=== PATIENT | male | born 1950 | race Native Hawaiian/Other Pacific Islander ===

== ENCOUNTER 2017-07-20 07:48 | Outpatient (CLI) | payer BC, OTHER ==
[~2017-07-20 07:48] MED LIST: ACET7.5T70 PO; ADIPEX-P37.5 M1 OR; CELEXA20 MG OR; CLARITIN10 MG OR; EZET10TA13 OR; FA-8800 MCG OR; FISH OIL1200 M1 OR; FURO40TA93 PO; GLUCOPHAGE1000 MG PO; LEVO0.08 PO; PLAVIX75 MG OR; PRAV40TA PO; PRILOSEC20 MG OR; RANO1000T PO; SINGULAIR10 MG OR; TRAZODONE150 MG PO
[2017-07-20] MEDS ORDERED: LIPITOR80 MG PO (11:22)
== END 2017-07-20 07:53 | disposition short-term general hospital (02) ==
LOC: AMB 07:48
DX: R53.1 Weakness (principal); R11.0 Nausea
CPT/HCPCS: A0425; A0427

== ENCOUNTER 2017-07-20 07:53 | Observation (INO) | payer BC, OTHER ==
[~2017-07-20] VITALS: Ht 172.7 cm; Wt 75.8 kg
[2017-07-20 07:55] VITALS: BP 146/74; TEMP 97.9
[2017-07-20 08:22] LABS: PLATELET COUNT 137 K/uL (142-355)
[2017-07-20 08:25] LABS: POTASSIUM 5.2 mmol/L (3.6-5.2)
[2017-07-20 09:37] LABS: PARTIAL THROMBOPLASTIN TIME 21.9 SECONDS (24.5-33.6)
[2017-07-20] MEDS ORDERED: LIPITOR80 MG PO (11:22)
[2017-07-20 14:53] VITALS: BP 144/77; TEMP 98.5; Ht 172.7 cm; Wt 75.8 kg
[2017-07-20 16:00] VITALS: BP 123/66; TEMP 98.8
[2017-07-20 20:00] VITALS: BP 140/76; TEMP 98.8
[2017-07-21] VITALS: BP 121/58; TEMP 98.3
[2017-07-21 04:00] VITALS: BP 108/60; TEMP 98.3
[2017-07-21 06:08] LABS: PLATELET COUNT 159 K/uL (142-355)
[2017-07-21 06:18] LABS: POTASSIUM 4.7 mmol/L (3.6-5.2); SODIUM 136 mmol/L (136-145)
[2017-07-21 08:00] VITALS: BP 114/56; TEMP 99.1
[2017-07-21 12:00] VITALS: BP 131/60; TEMP 98.6
== END 2017-07-21 17:10 | disposition home or self-care (01) ==
LOC: ED 07:53 → MED/SURG 10:45
PROVIDERS: ADMIT Emergency Medicine
DX: R55 Syncope and collapse (principal); E16.1 Other hypoglycemia; D53.9 Nutritional anemia, unspecified; R94.4 Abnormal results of kidney function studies; J44.9 Chronic obstructive pulmonary disease, unspecified; E11.9 Type 2 diabetes mellitus without complications; R07.89 Other chest pain; R20.0 Anesthesia of skin; R20.2 Paresthesia of skin
CPT/HCPCS: 36415; 80053; 82550; 82948; 83036; 83735; 84443; 84484; 85027; 85610; 85730; 93005; 93306; 96365; 96366; 99220; 99283; G0378

== ENCOUNTER 2021-07-14 10:13 | Outpatient (CLI) | payer OTHER, BC ==
[~2021-07-14 10:13] MED LIST changes: +LIPITOR80 MG PO
[2021-07-14 10:44] LABS: PLATELET COUNT 178 K/uL (142-355)
[2021-07-14 11:01] LABS: POTASSIUM 4.6 mmol/L (3.6-5.2)
== END 2021-07-14 21:48 | disposition home or self-care (01) ==
LOC: LABW 10:13
PROVIDERS: ATTEND Podiatrist
DX: Z01.810 Encounter for preprocedural cardiovascular examination (principal); Z01.811 Encounter for preprocedural respiratory examination; Z01.812 Encounter for preprocedural laboratory examination; E11.9 Type 2 diabetes mellitus without complications
CPT/HCPCS: 36415; 80053; 83036; 85002; 85027; 85610; 93005

== ENCOUNTER 2021-12-17 09:03 | Outpatient (CLI) | payer BC, OTHER | END 2021-12-17 19:15 | disposition home or self-care (01) | LOC: RAD 09:03 | PROVIDERS: ATTEND Internal Medicine | DX: J40 Bronchitis, not specified as acute or chronic (principal); R05.3 Chronic cough ==

== ENCOUNTER 2023-04-07 10:08 | Outpatient (CLI) | payer BC, OTHER | END 2023-04-07 19:06 | disposition home or self-care (01) | LOC: RAD 10:08 | PROVIDERS: ATTEND Internal Medicine Gastroenterology | DX: R13.11 Dysphagia, oral phase (principal) ==